=== PATIENT | female | born 1965 | race Caucasian/White ===

== ENCOUNTER 2021-08-24 11:36 | Emergency (ER) | payer MEDICAID ==
[2021-08-24] MEDS ORDERED: Meclizine 25 MG Tab PO ONE (13:10)
--- NOTE | 2021-08-24 16:05 | EDM.PDOC ---
ED HPI GENERAL MEDICAL PROBLEM - General Chief Complaint: Cardiovascular Problem Stated Complaint: VERY DIZZY/THROWING UP Time Seen by Provider: 08/24/21 13:05 - History of Present Illness INITIAL COMMENTS - FREE TEXT/NARRATIVE: CHIEF COMPLAINT(S): Dizziness HISTORY OF PRESENT ILLNESS: This is a 56-year-old woman with a past medical history of hypertension who comes to the emergency department with a chief complaint of dizziness. The patient states that she started to experience dizziness when she turns to her right starting this morning when she woke up. She states that she does feel nauseous when she feels the spinning sensation. She denies any headache, blurry vision, double vision or loss of vision. She denies any trouble walking, speaking or swallowing. She states that the room spins when she turns her right only and the symptoms stop when she keeps her head still. She states that she has never had this before. She denies any other symptoms such as fever, neck stiffness, IV drug use or back pain. REVIEW OF SYSTEMS: Constitutional: Denies fever, chills. Eyes: Denies eye pain Ears, Nose, Mouth, & Throat: Denies earache Cardiovascular: Denies chest pain Respiratory: Denies shortness of breath Gastrointestinal: Denies Nausea, vomiting, diarrhea, hematochezia. Genitourinary: Denies hematuria Skin:Denies a rash MSK: Denies joint pain Neurological: Positive for vertigo. Denies blurred vision, headache, numbness, tingling, weakness Psychiatric: Denies depression PAST MEDICAL HISTORY: As per history of present illness and as reviewed below otherwise noncontributory. SURGICAL HISTORY: As per history of present illness and as reviewed below otherwise noncontributory. SOCIAL HISTORY: As per history of present illness and as reviewed below otherwise noncontributory. FAMILY HISTORY: As per history of present illness and as reviewed below otherwise noncontributory. EXAMINATION OF ORGAN SYSTEMS/BODY AREAS: Constitutional: Blood pressure is 118/87, heart rate 83, respiratory rate 18 with an oxygen saturation 98% on room air. Temperature 36.4 General: Well-appearing woman who is in no acute distress Psychiatric: Appropriate mood and affect. Eyes: No scleral icterus or conjunctival erythema pupils were equal round reactive to light. Extraocular movements intact. Jeronimo-Hallpike maneuver was positive. ENMT: Moist mucous membranes. No pharyngeal erythema no stridor, drooling, trismus cardiovascular: Regular, rate, and rhythm. No gallops, murmurs, or rubs. Bilateral upper extremity pulses symmetric and intact. No peripheral edema. No JVD. Respiratory: Lungs clear to auscultation bilaterally. No wheezes, rales, or rhonchi. Gastrointestinal: Soft, non-tender, non-distended. Normoactive bowel sounds Genitourinary: No suprapubic tenderness Musculoskeletal: Normal range of motion. Skin: No lesions or abrasions. Neurological: AOx4. CN grossly intact. Strength 5/5 in bilateral upper and lower extremity. Sensation is intact bilaterally in upper and lower extremity. Gait appears normal. Finger to nose, heel to cruz, rapid alternating movements intact. MEDICAL DECISION MAKING AND COURSE IN THE ED WITH INTERPRETATION/REVIEW OF DIAGNOSTIC STUDIES: This is a 56-year-old woman with a past medical history of hypertension who presents to the emergency department with what appears to be benign positional vertigo. Patient has no cerebellar signs and appears well. We will provide the patient with meclizine by mouth and perform the modified Osmany maneuver. Did obtain a screening EKG which is unremarkable. After multiple rounds of the Osmany maneuver the patient did report significant decrease in her symptoms. The symptoms did not completely resolve however I did discuss continued use of the Osmany maneuver at home. She was amenable to discharge at this time and had no further questions DISPOSITION: The patient was discharged home in stable condition. The patient will follow up with primary care physician in 3 to 5 days CONDITION: Fair PROCEDURES: None FINAL IMPRESSION(S)/DIAGNOSES: 1. Acute vertigo likely secondary to BPPV Luis Daniel Darden M.D. - Related Data Allergies Allergy/AdvReac Type Severity Reaction Status Date / Time No Known Allergies Allergy Verified 08/24/21 12:26 Home Meds: Home Meds Meclizine [Antivert] 12.5 mg PO TID PRN #21 tab 08/24/21 [Rx] amLODIPine [Norvasc] 5 mg PO DAILY 08/24/21 [History] lisinopriL [Lisinopril] 10 mg PO DAILY 08/24/21 [History] Past Medical History Cardiovascular History: Reports: Hypertension - Past Surgical History HEENT Surgical History: Reports: Eye Surgery Social & Family History - Family History Family Medical History: No Pertinent Family History - Tobacco Use Tobacco Use Status *Q: Never Tobacco User - Alcohol Use Days Per Week of Alcohol Use: 4 Number of Drinks Per Day: 3 Total Drinks Per Week: 12 - Recreational Drug Use Recreational Drug Use: No ED ROS GENERAL - Review of Systems Review Of Systems: See Below ED EXAM, GENERAL - Physical Exam Exam: See Below Course - Vital Signs Last Recorded V/S: Last Vital Signs Temp 36.4 C 08/24/21 12:21 Pulse 74 08/24/21 16:21 Resp 18 08/24/21 16:21 BP 127/81 08/24/21 16:21 Pulse Ox 97 08/24/21 16:21 - Orders/Labs/Meds Meds: Medications Discontinued Medications Generic Name Dose Route Start Last Admin Trade Name Freq PRN Reason Stop Dose Admin Meclizine HCl 25 mg 08/24/21 13:10 08/24/21 13:32 Meclizine 25 Mg Tab PO 08/24/21 13:11 25 mg ONETIME ONE Administration Departure - Departure Time of Disposition: 16:04 Disposition: Home, Self-Care 01 Condition: Fair Clinical Impression: BPPV (benign paroxysmal positional vertigo) Prescriptions: Meclizine [Antivert] 12.5 mg PO TID PRN #21 tab PRN Reason: Dizziness Instructions: How to Perform the Osmany Maneuver, Benign Positional Vertigo Referrals: PCP,Not In Area [Primary Care Provider] - Forms: ED Department Discharge Additional Instructions: You were evaluated today on an emergent basis. As discussed I do believe you are experiencing benign positional vertigo. Please use the modified Osmany maneuver, the procedure we discussed until your symptoms improve. Please use meclizine 12.5 mg 3 times a day as needed for dizziness and nausea. If you have any worsening of your symptoms, headache, trouble speaking, trouble walking or you notice any signs of stroke you are welcome to return to the emergency department. Otherwise follow-up with your primary care physician in 3 to 5 days for reevaluation. [facility] [address] [place] [id number] [id number] The patient is informed of any results of their evaluation and diagnostic workup and all questions are answered. They are given discharge instructions and return precautions. The patient is stable for discharge. The patient states they understand and agree with the plan and that they will return if their symptoms get worse or if they have any new concerns. The following information is given to patients seen in the emergency department who are being discharged to home. This information is to outline your options for follow-up care. We provide all patients seen in our emergency department with a follow-up referral. The need for follow-up, as well as the timing and circumstances, are variable depending upon the specifics of your emergency department visit. If you don't have a primary care physician on staff, we will provide you with a referral. We always advise you to contact your personal physician following an emergency department visit to inform them of the circumstance of the visit and for follow-up with them and/or the need for any referrals to a consulting specialist. The emergency department will also refer you to a specialist when appropriate. This referral assures that you have the opportunity for follow-up care with a specialist. All of these measure are taken in an effort to provide you with optimal care, which includes your follow-up. Under all circumstances we always encourage you to contact your private physician who remains a resource for coordinating your care. When calling for follow-up care, please make the office aware that this follow-up is from your recent emergency room visit. If for any reason you are refused follow-up, please contact the Emergency Department at and asked to speak to the emergency department charge nurse. Sepsis Event Note (ED) - Evaluation Sepsis Screening Result: No Definite Risk
--- NOTE | 2021-08-24 17:32 | PCM.EKG ---
#1 Interpretation EKG Date: 08/24/21 Time: 14:28 Rhythm: NSR Rate (Beats/Min): 72 [place]: Normal P-Wave: Present QRS: Normal ST-T: Normal QT: Normal Comparison: NA - No Prior EKG EKG Interpretation Comments: Sinus Rhythm with nonspecific T wave inversion
== END 2021-08-24 16:15 | disposition home or self-care (01) ==
LOC: MW.ED 11:36
DX: H81.10 Benign paroxysmal vertigo, unspecified ear (principal); I10 Essential (primary) hypertension; Z79.899 Other long term (current) drug therapy
CPT/HCPCS: 93005; 99284; A9270; 93010; 99283

== ENCOUNTER 2022-03-26 12:00 | Emergency (ER) | payer MEDICAID ==
[2022-03-26 12:57] LABS: CORONAVIRUS COVID-19 NAA NEGATIVE (NEGATIVE); INFLUENZA A NAA NEGATIVE (NEGATIVE); INFLUENZA B NAA NEGATIVE (NEGATIVE)
[2022-03-26] MEDS ORDERED: Albuterol/Ipratropium 3.0-0.5 MG/3 ML Neb Soln NEB ONE (13:00)
== END 2022-03-26 13:57 | disposition home or self-care (01) ==
LOC: MW.ED 12:00
DX: J40 Bronchitis, not specified as acute or chronic (principal); I10 Essential (primary) hypertension; Z79.899 Other long term (current) drug therapy; Z20.822 Contact with and (suspected) exposure to COVID-19
CPT/HCPCS: 0240U; 71046; 99284; J7620-GY